=== PATIENT | male | born 1960 | race Two or more races ===

== ENCOUNTER 2018-01-28 14:40 | Outpatient (CLI) | payer OTHER ==
[~2018-01-28 14:40] MED LIST: AMLODIPINE BESYL5 MG PO; ASA81 MG PO; AVALIDE 150-12.1 TA1 PO; B Complex CAPSULE PO; BUMETANIDE1 MG PO; HUMULIN R500 U/ML IJ; HYDRALAZINE HCL50 MG PO; LEVOTHYROXINE125 MCG PO; LOSARTAN POTASS50 MG PO; Neurin-Sl Tablet Sl SL; SYNTHROID50 MCG PO
== END 2018-01-28 15:36 | disposition home or self-care (01) ==
LOC: RAD 501 14:40
DX: J44.9 Chronic obstructive pulmonary disease, unspecified (principal)

== ENCOUNTER 2018-03-06 08:39 | Outpatient (CLI) | payer OTHER | END 2018-03-06 09:06 | disposition home or self-care (01) | LOC: LAB 08:39 | DX: D63.1 Anemia in chronic kidney disease (principal); N18.5 Chronic kidney disease, stage 5; D50.8 Other iron deficiency anemias; D55.0 Anemia due to glucose-6-phosphate dehydrogenase [G6PD] deficiency; D63.8 Anemia in other chronic diseases classified elsewhere; I10 Essential (primary) hypertension; E11.22 Type 2 diabetes mellitus with diabetic chronic kidney disease; E11.43 Type 2 diabetes mellitus with diabetic autonomic (poly)neuropathy; E03.8 Other specified hypothyroidism; E78.2 Mixed hyperlipidemia; I73.89 Other specified peripheral vascular diseases; I87.2 Venous insufficiency (chronic) (peripheral); I25.119 Atherosclerotic heart disease of native coronary artery with unspecified angina pectoris; E55.9 Vitamin D deficiency, unspecified; D51.8 Other vitamin B12 deficiency anemias; D51.0 Vitamin B12 deficiency anemia due to intrinsic factor deficiency; K90.89 Other intestinal malabsorption; R97.0 Elevated carcinoembryonic antigen [CEA]; R97.8 Other abnormal tumor markers; N34.0 Urethral abscess ==

== ENCOUNTER 2021-04-11 07:13 | Outpatient (CLI) | payer OTHER | END 2021-04-11 07:24 | disposition home or self-care (01) | LOC: TOM 07:13 | PROVIDERS: ATTEND Internal Medicine Hematology & Oncology | DX: D55.0 Anemia due to glucose-6-phosphate dehydrogenase [G6PD] deficiency (principal); N18.6 End stage renal disease; R97.0 Elevated carcinoembryonic antigen [CEA]; R19.5 Other fecal abnormalities; D50.8 Other iron deficiency anemias; D63.8 Anemia in other chronic diseases classified elsewhere; E11.22 Type 2 diabetes mellitus with diabetic chronic kidney disease; E11.43 Type 2 diabetes mellitus with diabetic autonomic (poly)neuropathy; E03.8 Other specified hypothyroidism; I73.9 Peripheral vascular disease, unspecified; I87.2 Venous insufficiency (chronic) (peripheral); I25.119 Atherosclerotic heart disease of native coronary artery with unspecified angina pectoris; E55.9 Vitamin D deficiency, unspecified; D63.1 Anemia in chronic kidney disease; C73 Malignant neoplasm of thyroid gland; D50.0 Iron deficiency anemia secondary to blood loss (chronic); I12.0 Hypertensive chronic kidney disease with stage 5 chronic kidney disease or end stage renal disease | CPT/HCPCS: 71260; 74177; Q9965 ==

== ENCOUNTER 2023-03-04 07:32 | Outpatient (CLI) | payer OTHER | END 2023-03-04 07:33 | disposition home or self-care (01) | LOC: LAB 07:32 | PROVIDERS: ATTEND Internal Medicine Hematology & Oncology | DX: D50.8 Other iron deficiency anemias (principal); R74.02 Elevation of levels of lactic acid dehydrogenase [LDH]; K76.89 Other specified diseases of liver; D51.1 Vitamin B12 deficiency anemia due to selective vitamin B12 malabsorption with proteinuria; D51.0 Vitamin B12 deficiency anemia due to intrinsic factor deficiency; R97.0 Elevated carcinoembryonic antigen [CEA]; R97.8 Other abnormal tumor markers; R97.20 Elevated prostate specific antigen [PSA]; C7A.00 Malignant carcinoid tumor of unspecified site; R59.9 Enlarged lymph nodes, unspecified; D55.0 Anemia due to glucose-6-phosphate dehydrogenase [G6PD] deficiency; D63.1 Anemia in chronic kidney disease; N18.6 End stage renal disease; C73 Malignant neoplasm of thyroid gland; R19.5 Other fecal abnormalities; D63.8 Anemia in other chronic diseases classified elsewhere; E11.22 Type 2 diabetes mellitus with diabetic chronic kidney disease; E11.43 Type 2 diabetes mellitus with diabetic autonomic (poly)neuropathy; E03.8 Other specified hypothyroidism; I73.9 Peripheral vascular disease, unspecified; I87.9 Disorder of vein, unspecified; I25.119 Atherosclerotic heart disease of native coronary artery with unspecified angina pectoris ==

== ENCOUNTER → 2023-12-06 10:03 | Outpatient (CLI) | payer OTHER ==
[2023-12-06 11:19] LABS: HEMATOCRIT 33.5 % (39.0-48.0); MEAN CELL VOLUME 88.3 fL (80.0-100.00); MEAN CORPUSCULAR HGB CONC 32.9 g/dl (32.0-36.0); PLATELET COUNT 222 K/uL (150-450); RED BLOOD COUNT 3.79 M/uL (4.00-6.00); RED CELL DISTRIBUTION WIDTH 14.5 % (11.5-14.5)
[2023-12-06 12:08] LABS: % SATURACION 30.1 % (20-50); ALBUMIN 3.1 gm/dL (3.4-5.0); BILIRUBIN TOTAL 0.42 mg/dL (0.3-1.2); BILIRUBIN,CONJUGATED 0.17 mg/dL (0.0-0.2); BILIRUBIN,UNCONJUGATED 0.25 mg/dL (0.0-0.6); CALCIUM 8.2 mg/dL (8.5-10.1); POTASSIUM 3.81 mEq/L (3.5-5.1); TOTAL PROTEIN 8.6 gm/dL (6.4-8.2)
[2023-12-06 12:25] LABS: FERRITIN 1182.8 NG/ML (26-388); GFR 6.23
[2023-12-06 12:29] LABS: CREATININE SERUM 8.64 mg/dL (0.70-1.30)
[2023-12-06 13:46] LABS: FOLIC ACID 15.47 ng/ml (4.78-20)
== END | disposition home or self-care (01) ==
LOC: LAB 10:03
PROVIDERS: ATTEND Internal Medicine Hematology & Oncology
DX: C73 Malignant neoplasm of thyroid gland (principal); D50.0 Iron deficiency anemia secondary to blood loss (chronic); R59.9 Enlarged lymph nodes, unspecified; D55.0 Anemia due to glucose-6-phosphate dehydrogenase [G6PD] deficiency; D63.1 Anemia in chronic kidney disease; N18.6 End stage renal disease; R97.0 Elevated carcinoembryonic antigen [CEA]; R19.5 Other fecal abnormalities; D50.8 Other iron deficiency anemias; D63.8 Anemia in other chronic diseases classified elsewhere; I10 Essential (primary) hypertension; E11.22 Type 2 diabetes mellitus with diabetic chronic kidney disease; E11.43 Type 2 diabetes mellitus with diabetic autonomic (poly)neuropathy; E03.8 Other specified hypothyroidism; I73.9 Peripheral vascular disease, unspecified; I87.2 Venous insufficiency (chronic) (peripheral); E55.9 Vitamin D deficiency, unspecified

== ENCOUNTER → 2024-01-17 10:01 | Outpatient (CLI) | payer OTHER ==
[2024-01-17 11:17] LABS: HEMATOCRIT 38.2 % (39.0-48.0); HEMOGLOBIN 12.6 g/dL (13-16.00); MEAN CELL VOLUME 88.6 fL (80.0-100.00); MEAN CORPUSCULAR HEMOGLOBIN 29.2 pg (27.00-32.0); MEAN CORPUSCULAR HGB CONC 32.9 g/dl (32.0-36.0); PLATELET COUNT 200 K/uL (150-450); RED BLOOD COUNT 4.31 M/uL (4.00-6.00); RED CELL DISTRIBUTION WIDTH 15.6 % (11.5-14.5)
[2024-01-17 11:49] LABS: ALBUMIN 3.5 gm/dL (3.4-5.0); BILIRUBIN TOTAL 0.48 mg/dL (0.3-1.2); BILIRUBIN,CONJUGATED 0.15 mg/dL (0.0-0.2); BILIRUBIN,UNCONJUGATED 0.33 mg/dL (0.0-0.6); CALCIUM 9.2 mg/dL (8.5-10.1); GFR 5.7; POTASSIUM 3.81 mEq/L (3.5-5.1); TOTAL PROTEIN 8.8 gm/dL (6.4-8.2)
[2024-01-17 11:54] LABS: CREATININE SERUM 9.33 mg/dL (0.70-1.30)
== END | disposition home or self-care (01) ==
LOC: LAB 10:01
PROVIDERS: ATTEND Internal Medicine Hematology & Oncology
DX: C7A.010 Malignant carcinoid tumor of the duodenum (principal); D50.0 Iron deficiency anemia secondary to blood loss (chronic); R59.9 Enlarged lymph nodes, unspecified; D55.0 Anemia due to glucose-6-phosphate dehydrogenase [G6PD] deficiency; D63.1 Anemia in chronic kidney disease; N18.6 End stage renal disease; C73 Malignant neoplasm of thyroid gland; R97.0 Elevated carcinoembryonic antigen [CEA]; R19.5 Other fecal abnormalities; N18.5 Chronic kidney disease, stage 5; D50.8 Other iron deficiency anemias; D63.8 Anemia in other chronic diseases classified elsewhere; I10 Essential (primary) hypertension; E11.22 Type 2 diabetes mellitus with diabetic chronic kidney disease; E11.43 Type 2 diabetes mellitus with diabetic autonomic (poly)neuropathy; E03.8 Other specified hypothyroidism; E78.2 Mixed hyperlipidemia; I73.9 Peripheral vascular disease, unspecified; I87.2 Venous insufficiency (chronic) (peripheral); I25.119 Atherosclerotic heart disease of native coronary artery with unspecified angina pectoris; E55.9 Vitamin D deficiency, unspecified

== ENCOUNTER 2024-10-09 07:12 | Outpatient (CLI) | payer OTHER ==
[2024-10-09 07:49] LABS: HEMATOCRIT 38.2 % (39.0-48.0); HEMOGLOBIN 12.6 g/dL (13-16.00); MEAN CELL VOLUME 91.3 fL (80.0-100.00); MEAN CORPUSCULAR HEMOGLOBIN 30.1 pg (27.00-32.0); PLATELET COUNT 166 K/uL (150-450); RED BLOOD COUNT 4.19 M/uL (4.00-6.00); RED CELL DISTRIBUTION WIDTH 15.2 % (11.5-14.5)
[2024-10-09 09:14] LABS: ALBUMIN 3.6 gm/dL (3.4-5.0); BILIRUBIN TOTAL 0.55 mg/dL (0.3-1.2); BILIRUBIN,CONJUGATED 0.21 mg/dL (0.0-0.2); BILIRUBIN,UNCONJUGATED 0.34 mg/dL (0.0-0.6); CALCIUM 8.1 mg/dL (8.5-10.1); GFR 6.06; POTASSIUM 3.74 mEq/L (3.5-5.1); TOTAL PROTEIN 8.2 gm/dL (6.4-8.2)
[2024-10-09 09:35] LABS: CREATININE SERUM 8.82 mg/dL (0.70-1.30)
[2024-10-12 18:04] LABS: CHROMOGRANIN A 223.8 ng/mL (0.0-101.8)
[2024-10-23 14:41] LABS: metanephrines < 25.0 pg/mL (0.0-88.0); normeta 85.3 pg/mL (0.0-285.2)
== END 2024-10-09 07:22 | disposition home or self-care (01) ==
LOC: LAB 07:12
PROVIDERS: ATTEND Internal Medicine Hematology & Oncology
DX: C7A.010 Malignant carcinoid tumor of the duodenum (principal); R59.0 Localized enlarged lymph nodes; D55.0 Anemia due to glucose-6-phosphate dehydrogenase [G6PD] deficiency; D63.1 Anemia in chronic kidney disease; C73 Malignant neoplasm of thyroid gland; R97.0 Elevated carcinoembryonic antigen [CEA]; R19.5 Other fecal abnormalities; N18.5 Chronic kidney disease, stage 5; D50.8 Other iron deficiency anemias; D63.8 Anemia in other chronic diseases classified elsewhere; I10 Essential (primary) hypertension; E11.22 Type 2 diabetes mellitus with diabetic chronic kidney disease; E11.43 Type 2 diabetes mellitus with diabetic autonomic (poly)neuropathy; E03.8 Other specified hypothyroidism; I73.9 Peripheral vascular disease, unspecified; I87.2 Venous insufficiency (chronic) (peripheral); I25.119 Atherosclerotic heart disease of native coronary artery with unspecified angina pectoris; E55.9 Vitamin D deficiency, unspecified; R74.02 Elevation of levels of lactic acid dehydrogenase [LDH]; K76.89 Other specified diseases of liver